=== PATIENT | female | born 1995 | race Caucasian/White ===

== ENCOUNTER 2025-08-02 10:33 | Inpatient (IN) ==
[2025-08-02] MEDS ORDERED: ACETAMINOPHEN 500 MG TAB PO PRN (12:59)
[2025-08-02] MEDS ORDERED: LIDOCAINE 1% LOCAL 20 ML VIAL INFIL PRN (12:59)
[2025-08-02] MEDS ORDERED: CALCIUM CARBONATE 500 MG CHEWABLE TAB PO PRN (12:59)
[2025-08-02] MEDS: LACTATED RINGER'S 1,000 ML IV PRN (13:01)
[2025-08-02 13:24] LABS: Hematocrit (blood only) 34.4 % (37.0-47.0); Hemoglobin 11.2 g/dl (12.0-16.0); Mean Corpuscular Hemoglobin 27.6 pg (25.0-34.0); Mean Corpuscular Volume 84.7 fL (80.0-100.0); Platelet Count 210 K/uL (130-400); RDW Standard Deviation 44.3 fL (36.4-46.3); Red Blood Count 4.06 M/uL (4.20-5.40); White Blood Count 10.41 K/ul (4.8-10.8)
--- NOTE | 2025-08-02 13:27 | Anesthesiology Consultation ---
Date of Service August 02, 2025 Assessment & Plan (1) Encounter for pre-operative examination: Chart Review Chart Review: Acceptable Risk for Labor Epidural History Height/Weight Height: 5 ft 2.6 in Weight: 69.4 kg Allergies Allergy/AdvReac Type Severity Reaction Status Date / Time No Known Allergies Allergy Verified 08/02/25 10:49 Medications Home Medications Medication Instructions Recorded Confirmed Last Taken vitamins with calcium 1 tab PO DAILY 11/26/24 08/02/25 07/31/25 no.72-iron 27 mg-folic acid 1 mg tablet ( Vitamins Plus Low Iron) blood sugar diagnostic (Accu-Chek #150 ea 07/01/25 07/29/25 Unknown Guide test strips) blood-glucose meter (Accu-Chek #1 ea 07/01/25 07/29/25 Unknown Guide Glucose Meter) lancets (Accu-Chek Softclix #150 ea 07/01/25 07/29/25 Unknown Lancets) Past Medical History Medical History History of chicken pox Past Family History Family History Denies family history of Ovarian cancer Breast cancer Colorectal cancer Past Surgical History Surgical History S/P wisdom tooth extraction Social History Smoking Status: Former smoker Do You Dip or Chew Tobacco: No Hx Alcohol Use: No Hx Substance Use: No substance use type: does not use Physical Exam Vital Signs Last Vital Signs Temp 36.4 C L 08/02/25 10:47 Pulse 87 08/02/25 10:44 Resp 18 08/02/25 10:47 BP 107/64 08/02/25 10:44 Testing Laboratory Results Laboratory Tests 08/02/25 13:07 Hgb 11.2 L Plt Count 210
[2025-08-02] MEDS: BUPIVACAINE 0.25% PF 30 ML VIAL ONE (13:49)
[2025-08-02] MEDS: fentANYL 2 MCG/ML BUPIVacaine 0.125%-NSS 100ML BAG ONE (13:50)
[2025-08-02] MEDS ORDERED: BUPIVACAINE 0.25% PF 30 ML VIAL EPI PRN (13:53)
[2025-08-02] MEDS ORDERED: NALOXONE HCL 0.4 MG/1 ML VIAL/CARP IV PRN (13:53)
[2025-08-02] MEDS ORDERED: ROPIVACAINE 0.5% PF 5 MG/ML 20 ML VIAL EPI PRN (13:53)
[2025-08-02] MEDS ORDERED: LIDOCAINE 2% MPF LOCAL 5 ML VIAL EPI PRN (13:53)
[2025-08-02] MEDS ORDERED: ONDANSETRON INJ 2 MG/ML 2 ML VIAL IV PRN (13:53)
[2025-08-02] MEDS ORDERED: fentANYL 2 MCG/ML BUPIVacaine 0.125%-NSS 100ML BAG EPI PRN (13:53)
[2025-08-02] MEDS ORDERED: NALOXONE HCL 1 MG in SODIUM CHLORIDE 0.9% 1,000 ML IV PRN (13:53)
[2025-08-02] MEDS ORDERED: SODIUM CHLORIDE 0.9% PF INJ 10 ML VIAL EPI PRN (13:53)
[2025-08-02] MEDS: LIDOCAINE 2%/EPINEPHRINE 1:200,000 20 ML PF ONE (13:57)
[2025-08-02] MEDS: SODIUM CHLORIDE 0.9% PF INJ 10 ML VIAL ONE (13:57)
[2025-08-02] MEDS: BUPIVACAINE 0.25% PF 30 ML VIAL EPI STA (14:30)
[2025-08-02] MEDS: LIDOCAINE 2%/EPINEPHRINE 1:200,000 20 ML PF EPI STA (14:30)
[2025-08-02] MEDS: SODIUM CHLORIDE 0.9% PF INJ 10 ML VIAL EPI STA (14:31)
[2025-08-02] MEDS: OXYTOCIN 30 UNITS/NSS 30 UNITS/500 ML BAG IV PRN (20:03)
[2025-08-02] MEDS ORDERED: OXYTOCIN 30 UNITS/NSS 30 UNITS/500 ML BAG IV PRN (20:17)
[2025-08-02] MEDS ORDERED: DIPHTHER/TETAN/PERTUS Vaccine (Tdap, Adol/Adult) 0.5mL IM ONE (20:17)
[2025-08-02] MEDS ORDERED: HYDROCORTISONE ACETATE 25 MG SUPP PR PRN (20:17)
--- NOTE | 2025-08-02 20:20 | Delivery Summary ---
Vaginal Delivery Summary Date of Service August 02, 2025 Vaginal Delivery Summary and 2nd Degree LAC Patient progressed to 10 cm dilated, 100% effaced and +2 station pushed over intact perineum with epidural anesthesia and delivered a viable female with weight and Apgars pending. Head of the delivered without difficulty quickly followed by shoulders and body. was noted be vigorous upon delivery and a 1 minute delayed cord clamping was initiated. Cord was then doubly clamped and cut remained on maternal abdomen. Cord blood obtained attention turned deliver the placenta which delivered intact with three-vessel cord gentle cord traction. Inspection of perineum vagina cervix there is noted to be a second-degree perineal laceration which was repaired with 3-0 Vicryl in traditional crown stitch. Needle, sponge and instrument counts are correct at the completion of the case. Both mother and stable in the immediate postdelivery timeframe. No complications noted and blood loss per QBL in chart. [facility] Vaginal Delivery Charge Delivery Type Details: and 2nd Degree LAC
[2025-08-02] MEDS: BENZOCAINE 20% SPRY 85 APPLN/85 GM CAN EXT PRN (20:46)
[2025-08-02] MEDS: DOCUSATE SODIUM 100 MG CAP PO SCH (20:47)
[2025-08-02] MEDS: IBUPROFEN 600 MG TAB PO PRN (20:47)
[2025-08-03] MEDS: ACETAMINOPHEN 325 MG TAB PO PRN (05:15)
[2025-08-03 07:23] LABS: Hematocrit (blood only) 33.2 % (37.0-47.0); Hemoglobin 10.8 g/dl (12.0-16.0)
--- NOTE | 2025-08-03 08:54 | Obstetrical Progress Note ---
Date of Service August 03, 2025 Assessment & Plan (1) Encounter for care and examination after delivery: Day 1 status post vaginal delivery. Patient doing well and will continue with routine care. Subjective Ambulation: ambulating normally Voiding: no voiding problems Passing Gas:: Yes Diet Tolerance:: regular diet Lochia:: Moderate Feeding Type:: breast feeding Physical Exam Constitutional WD/WN, vitals as above Respiratory normal respiratory effort; no respiratory distress and no labored breathing Cardiovascular Extremities: no calf tenderness Gastrointestinal (Abdomen) Inspection/Auscultation: abdomen normal to inspection; abdomen not distended Percussion/Palpation: abdomen soft; abdomen nontender, no guarding and abdomen not rigid Genitourinary OB Exam Abdomen: + fundal height Fundus: + firm and + relation to umbilicus (Below); not tender or not boggy Results & Data Vital Signs (Past 12 Hours) Vital Signs Temp Pulse Pulse Resp BP BP Pulse Ox 08/03/25 05:41 36.4 C L 77 16 93/67 L 97 08/03/25 02:40 36.9 C 91 H 18 91/55 L 97 08/02/25 22:35 18 08/02/25 22:30 36.6 C 91 H 16 96/62 L 97 08/02/25 22:30 36.6 C 90 16 96/62 L 97 08/02/25 22:15 36.8 C 18 08/02/25 22:10 97 H 94/54 L 08/02/25 21:55 93 H 92/51 L 08/02/25 21:45 18 08/02/25 21:41 102 H 91/58 L 08/02/25 21:25 97 H 104/56 L 08/02/25 21:15 18 08/02/25 21:10 108 H 106/56 L 08/02/25 21:00 18 08/02/25 20:57 95 H 112/63 O2 Del Method 08/03/25 05:41 Room Air 08/03/25 02:40 Room Air 08/02/25 22:35 08/02/25 22:30 Room Air 08/02/25 22:30 08/02/25 22:15 08/02/25 22:10 08/02/25 21:55 08/02/25 21:45 08/02/25 21:41 08/02/25 21:25 08/02/25 21:15 08/02/25 21:10 08/02/25 21:00 08/02/25 20:57
--- NOTE | 2025-08-03 09:01 | Anesthesia Procedure Note ---
Date of Service August 03, 2025 Anesthesia Post Epidural Note Vital Signs Vital Signs: Temp Pulse Resp BP Pulse Ox O2 Del Method 36.4 C L 77 16 93/67 L 97 Room Air 08/03/25 05:41 08/03/25 05:41 08/03/25 05:41 08/03/25 05:41 08/03/25 05:41 08/03/25 05:41 Pain Intensity Bilateral Head: Pain Intensity: 9 Notes Mental Status: alert / awake / arousable and participated in evaluation Nausea / Vomiting: adequately controlled Pain: adequately controlled Airway Patency, RR, SpO2: stable & adequate BP & HR: stable & adequate Hydration State: stable & adequate Neuraxial Anesthesia: was administered and sensory block is resolving Anesthetic Complications: no major complications apparent Epidural: Removed without complications and With tip intact
[2025-08-03] MEDS: FERROUS SULFATE 325 MG TAB PO SCH (09:23)
[2025-08-03] MEDS: PRENATAL VITAMIN 1 TAB PO SCH (09:24)
[2025-08-03 21:28] VITALS: O2SAT 97
--- NOTE | 2025-08-04 06:11 | Obstetrical Progress Note ---
Date of Service August 04, 2025 Assessment & Plan (1) care and examination: (2) Encounter for supervision of normal in multigravida: Plan 30 yo post- day 2 s/p [] Fells well today. Vital signs stable Continue post- care Encourage ambulation and Pain controlled with Tylenol and ibuprofen. Hgb stable Imodium PRN Discharge home today, follow up with Dr. Martin in 6 weeks. Admission and Anticipated Discharge Date Admission Date: August 02, 2025 Supervising Physician Co-Signing Physician Notes Patient seen with resident and agree with the above findings and plan. Stable for discharge Subjective 30 yo post- day 2 s/p [] Ambulation: ambulating normally Voiding: Patient reports that when she does urinate she cant stop the stream. No incontinence when resting. Passing Gas:: Yes Diet Tolerance:: regular diet Feeding Type:: breast feeding and bottle feeding Current Pain Level: 5/10. Pain around perineal stitching and cramping. Also admits to back pain when she walks. Resting comfortably this AM in NAD. Denies fevers/chills, CP/palp, SOB/cough/wheezing, N/V, breast pain/dschrg. She also has noted the bleeding has stopped. Admits to "burning" while urinating. Patient did have a light headache yesterday but reports that Tylenol helps. No headache today. She also admits to watery stools after taking a stool softener pill. Review of Systems Review of Systems: as per subjective HPI Physical Exam Constitutional: well developed and well nourished Eyes: + anicteric sclerae and EOM intact bilat erally Respiratory: normal respiratory effort, lungs clear to auscultation Cardiovascular: Rate/Rhythm: regular rate and regular rhythm Heart Sounds: normal S1 and normal S2; no murmur Extremities: no calf tenderness Swelling noted in legs B/L. No pitting edema. However, L. leg more swollen than the R. leg. Gastrointestinal (Abdomen): Percussion/Palpation: abdomen soft; abdomen nontender Skin: no rashes, warm and dry Neurologic: Motor/Sensory: + sensory deficit (noted less sensation on anterior R. leg, and posterior L. leg.) Genitourinary: Uterus was firm Results & Data Vital Signs (Past 12 Hours) Vital Signs Temp Pulse Resp BP Pulse Ox O2 Del Method 08/03/25 23:32 36.3 C L 79 16 99/67 L 97 Room Air 08/03/25 20:56 36.6 C 86 18 101/69 97 Room Air Laboratory Results Lab Results 08/02/25 08/03/25 Range/Units 13:07 07:00 WBC 10.41 (4.8-10.8) K/ul RBC 4.06 L (4.20-5.40) M/uL Hgb 11.2 L 10.8 L (12.0-16.0) g/dl Hct 34.4 L 33.2 L (37.0-47.0) % MCV 84.7 (80.0-100.0) fL MCH 27.6 (25.0-34.0) pg MCHC 32.6 (32.0-36.0) g/dL RDW Std Deviation 44.3 (36.4-46.3) fL RDW Coeff of Iraj 14.3 (11.5-14.5) % Plt Count 210 (130-400) K/uL MPV 9.1 L (9.4-12.4) fL Treponema pallidum Ab Negative (Negative) Blood Type O Positive Antibody Screen NEGATIVE Resident Activity Tracking Resident Involvement: Resident Care Provided Care Provided: OB Delivery (. Not Delivery)
[2025-08-04 07:49] VITALS: BP 103/71; PULSE 90; RESP 19; TEMP 97.7
[2025-08-04] MEDS: LOPERAMIDE HCL 2 MG CAP PO PRN (09:15)
== END 2025-08-04 12:30 | disposition home or self-care (01) | DRG 807 ==
LOC: OPB 10:33 → 4S1 10:35 → 4E2 22:47
DX: Z3A.39 39 weeks gestation of pregnancy; O70.1 Second degree perineal laceration during delivery; Z87.891 Personal history of nicotine dependence; Z37.0 Single live birth